=== PATIENT | female | born 1945 | race Caucasian/White ===

== ENCOUNTER → 2016-03-20 | Outpatient (CLI) | payer OTHER, MEDICARE ==
[2016-03-20 10:10] LABS: BASO % 0.5 % (0.0-1.0); EOS # 0.2 K/mm3 (0.0-0.50); EOS % 4.7 % (0.0-3.0); LYMPH # 1.6 K/mm3 (1.5-4.5); LYMPH % 30.8 % (24.0-44.0); MEAN CORPUSCULAR HEMOGLOBIN 31.4 pg (27.0-33.0); MEAN CORPUSCULAR HGB CONC 33.6 g/dl (32.0-36.5); MEAN CORPUSCULAR VOLUME 93.4 fl (80.0-96.0); MONO # 0.3 K/mm3 (0.0-0.8); MONO % 5.1 % (0.0-5.0); NEUTROPHILS # 2.9 K/mm3 (1.8-7.7); NEUTROPHILS % 56.1 % (36.0-66.0); RED CELL DISTRIBUTION WIDTH 13.2 % (11.5-14.5); WHITE BLOOD COUNT 5.1 K/mm3 (4.0-10.0)
== END ==
LOC: M LAB 09:36
PROVIDERS: ATTEND Family Medicine
DX: R53.83 Other fatigue (principal); D47.3 Essential (hemorrhagic) thrombocythemia; R05 Cough

== ENCOUNTER → 2016-05-27 | Outpatient (CLI) | payer OTHER, MEDICARE ==
--- NOTE | 2016-05-27 17:44 | PFTRPT ---
DATE OF PROCEDURE: 05/27/2016 ORDERING PROVIDER: Dr. Fran Masterson Pre and post bronchodilator study. Study of excellent technical quality. Forced vital capacity normal. FEV1 is out of proportion, obstructive index is therefore reduced. Expiratory limb of the flow volume loop with significant flow rate reduction. Only borderline bronchodilator response is identified. Total lung capacity elevated. Residual volume consistent with a degree of air trapping. Diffusing capacity is reduced, but does correct for alveolar volume. No hemoglobin available for correction. Airway resistance conductance reasonable. IMPRESSION: Moderate obstructive ventilatory impairment, suspected underlying air trapping. Decline in the diffusing capacity. Please correlate clinically. MTDD
== END ==
LOC: M CARPUL 17:06
PROVIDERS: ATTEND Family Medicine
DX: R05 Cough (principal)